=== PATIENT | female | born 1965 | race Caucasian/White ===

== ENCOUNTER 2020-01-01 17:21 | Emergency (ER) | payer OTHER ==
[~2020-01-01] VITALS: Ht 162.6 cm; Wt 108.9 kg
[~2020-01-01 17:21] MED LIST: CELECOXIB200 MG PO; DICLOFENAC SODI75 MG PO; IBUPROFEN200 M1 PO; LISINOPRIL20 MG PO; METOPROLOL-HCT1 EAC1 PO; NORCO 5-325 TA1 EACH PO; NORCO 7.5-3251 EACH PO; TYLENOL EXTRA500 MG PO; ULTRAM50 MG PO; ZANTAC150 MG PO
[2020-01-01] MEDS ORDERED: NORCO 5-325 TA1 EACH PO (20:59)
[2020-01-01] MEDS ORDERED: ZOFRAN4 MG PO (20:59)
== END 2020-01-01 21:13 | disposition home or self-care (01) ==
LOC: ED 17:21
DX: N13.2 Hydronephrosis with renal and ureteral calculous obstruction (principal); I10 Essential (primary) hypertension; F17.200 Nicotine dependence, unspecified, uncomplicated; Z91.040 Latex allergy status; Z88.8 Allergy status to other drugs, medicaments and biological substances; Z79.899 Other long term (current) drug therapy
CPT/HCPCS: 51798; 74176; 80053; 81001; 85025; 96374; 96375; 99284-25; J1170; J1885; J2405; J7030

== ENCOUNTER 2020-01-18 11:45 | Day surgery (SDC) | payer OTHER ==
[~2020-01-18] VITALS: Ht 162.6 cm; Wt 106.4 kg
[~2020-01-18 11:45] MED LIST changes: +FLOMAX0.4 MG PO; +OXYCODONE HCL5 MG PO; +ZOFRAN4 MG PO
--- NOTE | 2020-01-18 14:22 | NUR ---
01/18/20 1422 Jacqueline Leal 1357 PT ARRIVED IN PACU SLEEPY WITH NO C/O'S. 1410 PT RESTING. REU. 1420 PT AWAKE TALKING TO STAFF. NO C/O'S.
--- NOTE | 2020-01-18 15:08 | NUR ---
PT TOLERATES PO WELL, WATER REFILLED. PT STATES SHE IS HAVING INCREASING PAIN AND CRAMPING "LIKE PERIOD PAID." PT WOULD LIKE SOMETHING TO HELP WITH PAIN; SEE EMAR. PT SPOUSE AT BEDSIDE, CALL LIGHT WITHIN REACH.
--- NOTE | 2020-01-18 15:45 | NUR ---
PT STATES THAT A NURSE HELPED HER TO BATHROOM AND SHE WAS ABLE TO VOID, WHEN ASKED PT STATES "THERE WAS SOME BLOOD PRESENT." PT BACK TO ROOM WITH SPOUSE AT BEDSIDE, DENIES PAIN AT THIS TIME. PT EDUCATED ABOUT STENT IN PLACE. 1615: PT DRESSES SELF WITH SPOUSE IN RM. DC INSTRUCTIONS GIVEN IN PRESENCE OF PT AND SPOUSE, NO QUESTIONS ASKED. PT IS TRASFERRED TO PERSONAL VEHICLE DRIVEN BY SPOUSE AT MAIN ENTRANCE OF HOSPITAL VIA WC TO HOME.
[2020-01-18] MEDS ORDERED: CIPRO500 MG PO (16:09)
[2020-01-18] MEDS ORDERED: PERCOCET 7.5-31 EACH PO (16:09)
--- NOTE | 2020-01-21 19:26 | OR ---
[facility] [address] [place], [place] [address] Signed DATE OF OPERATION: 01/18/2020 SURGEON: Joan Parham MD PREOPERATIVE DIAGNOSIS: A 14 mm obstructing right distal ureteral calculus. POSTOPERATIVE DIAGNOSIS: A 14 mm right ureterovesical junction calculus, obstructing. PROCEDURES: 1. Cystoscopy with right retrograde pyelogram. 2. Semi-rigid ureteroscopy with laser lithotripsy and basket extraction of stone fragments. 3. Insertion of a 7 x 24 cm double-J ureteral stent into the right ureter. INDICATIONS FOR PROCEDURE: Ms. Quinteros is a very pleasant 54-year-old female with no previous history of nephrolithiasis, who presented to my clinic last week with complaints of multi day history of sudden onset of right-sided flank pain. She had previously presented to the emergency department, where she underwent a CT scan, which revealed a 14 x 9 mm right distal ureteral calculus with associated hydroureteronephrosis. The patient did not have UTI at the time and she denied any fevers or chills. She was sent home, where she followed up with me relatively soon thereafter and requesting surgical extraction of the stone. After discussing the risks and benefits of the procedure, the patient elected to undergo ureteroscopic extraction of her large right distal ureteral calculus. OPERATIVE FINDINGS: 1. On cystoscopy, there was no evidence of any suspicious masses or lesions. The large right ureteral calculus appears to be from the right ureteral orifice. Only a small portion of the stone appears to be bulging from the right ureteral orifice. The left ureteral orifice is effluxing clear yellow urine. 2. Right retrograde pyelogram revealed urdvygae-fq-hjqagx calyceal dilation of the right kidney. No other filling defects were noted within the right ureter. 3. Right distal ureteroscopy immediately revealed the presence of a large stone in the distal right ureter, near the right UVJ. The stone was fragmented using a holmium laser at 8 and 1 settings using a 270 micron fiber. The stone fragmented with moderate difficulty. I was able to basket the stone fragments using a Zero tip basket and I retrieved 100% of the stone burden from the distal right ureter. 4. At the end of the procedure, a 7 x 24 cm double-J ureteral stent was inserted into Electronically Signed By: JOAN PARHAM MD 01/21/20 1926 PATIENT NAME: ROCAEL QUINTEROS OPERATIVE REPORT DATE OF : 63 REPORT #: [id number] PHYSICIAN: JOAN PARHAM MD PCP: MARCELA NAIR DO REPORT IS CONFIDENTIAL AND NOT TO BE RELEASED WITHOUT AUTHORIZATION [facility] [address] [place] [id number] Signed the patient's right ureter under direct visualization without difficulty. DESCRIPTION OF PROCEDURE: After informed consent was obtained, the patient was taken back to the operating room. She was transferred from the [facility] to the operating room table, where general anesthesia was induced. She was placed in the dorsal lithotomy position and her genitalia were prepped and draped in a standard sterile fashion. Using a 30-degree lens on a 22.5-Algerian introducer rigid cystoscope was inserted through urethra into her bladder under direct visualization. Panendoscopic views of the bladder were then obtained. Please see above findings. I then removed the cystoscope and replaced it with a semi-rigid short ureteroscope. Once I noted that the stone appeared to be from the right ureteral orifice, I gently inserted the ureteroscope and pushed the stone about 1 cm into the right ureter. This was where the stone was lasered using a 270 micron fiber and the holmium laser at 8 and 1 settings. The stone fragmented with lllm-bn-krcsgjve difficulty. I was then able to successfully extract 100% of the stone fragments from the distal right ureter. I advanced the ureteroscope all the way up to the proximal right ureter and I did not appreciate any other stone fragments. A 0.035 sensor wire was inserted through the rigid ureteroscope and up into the proximal right ureter and right renal pelvis. The ureteroscope was then removed fully intact. Over the wire, I passed a 7 x 24 cm double-J ureteral stent into the right ureter under direct visualization without difficulty. A proximal coil was seen within the right renal pelvis once I pulled the Sensor wire. An adequate distal coil was seen within the bladder. A string was left on the stent at the end of the procedure. The patient's bladder was then drained and the cystoscope was removed. The procedure was then terminated. The patient tolerated the procedure well without any complication. She will now be transferred to the Postanesthesia Care Unit in stable condition. DISPOSITION: I discussed the details of today's surgery with the patient's and answered all of his questions. I did tell him that 100% of the patient's obstructing stone has been successfully removed from the right ureter. She has been given some additional pain control in the form of oxycodone 5 mg p.o. q.6 hours p.r.n. pain, dispense #20. She was also sent home today on Cipro 500 mg p.o. b.i.d. for a total of 7 days. She was instructed to remove her indwelling ureteral stent using the string attached on January 21. She will be then scheduled to see me in approximately 6 to 8 weeks for her first postoperative evaluation and to discuss the results of her stone analysis. Joan Parham MD Electronically Signed By: JOAN PARHAM MD 01/21/20 192 PATIENT NAME: ROCAEL QUINTEROS OPERATIVE REPORT DATE OF : 63 REPORT #: [id number] PHYSICIAN: JOAN PARHAM MD PCP: MARCELA NAIR DO REPORT IS CONFIDENTIAL AND NOT TO BE RELEASED WITHOUT AUTHORIZATION [address] [place] [address] Signed AR/MODL /[id number] Copies: ~ Electronically Signed By: JOAN PARHAM MD 01/21/20 1926 PATIENT NAME: ROCAEL QUINTEROS OPERATIVE REPORT DATE OF : 63 REPORT #: [id number] PHYSICIAN: JOAN PARHAM MD PCP: MARCELA NAIR DO REPORT IS CONFIDENTIAL AND NOT TO BE RELEASED WITHOUT AUTHORIZATION
== END 2020-01-18 16:20 | disposition home or self-care (01) ==
LOC: OPS 11:45 → DS 11:45 → OPS 12:00 → DS 12:00 → OPS 12:30
PROVIDERS: ATTEND Urology
PROC: 0TC68ZZ Extirpation of Matter from Right Ureter, Via Natural or Artificial Opening Endoscopic (ICD-10-PCS; 2020-01-18)
PROC: BT1DZZZ Fluoroscopy of Right Kidney, Ureter and Bladder (ICD-10-PCS; 2020-01-18)
PROC: 0T768DZ Dilation of Right Ureter with Intraluminal Device, Via Natural or Artificial Opening Endoscopic (ICD-10-PCS; principal; 2020-01-18 12:30)
DX: N20.1 Calculus of ureter (principal); I10 Essential (primary) hypertension; E11.9 Type 2 diabetes mellitus without complications; E78.00 Pure hypercholesterolemia, unspecified; F17.210 Nicotine dependence, cigarettes, uncomplicated; K21.9 Gastro-esophageal reflux disease without esophagitis; E66.01 Morbid (severe) obesity due to excess calories; Z88.6 Allergy status to analgesic agent; Z79.899 Other long term (current) drug therapy; Z68.39 Body mass index [BMI] 39.0-39.9, adult; Z01.812 Encounter for preprocedural laboratory examination; Z20.828 Contact with and (suspected) exposure to other viral communicable diseases
CPT/HCPCS: 00918; 74018; 74420; 82365; C1769; C2617; J0690; J1100; J1885; J2250; J2405; J2704; J2765; J3010; J7121; Q9967

== ENCOUNTER 2024-12-30 05:45 | Day surgery (SDC) | payer OTHER ==
[~2024-12-30] VITALS: Ht 162.6 cm; Wt 95.0 kg
[~2024-12-30 05:45] MED LIST changes: +ATIVAN1 MG PO; +CIPRO500 MG PO; +CYCLOBENZAPRINE10 MG PO; +HYDROCODON-ACE1 EA10 PO; +LACTATED RINGER'S 1,000 ML IV SCH; +LIPITOR10 MG PO; +METFORMIN HCL500 MG PO; +NEURONTIN400 MG PO; +PERCOCET 7.5-31 EACH PO
[2024-12-30 05:59] VITALS: BP 114/66
[2024-12-30 06:18] LABS: BASOPHILS 0.8 % (0.1-1.2); EOSINOPHILS 1.5 % (0.7-5.8); LYMPHOCYTES 26.7 % (19.3-51.7); MCH 30.7 PG (25.6-32.2); MCHC 33.4 g/dL (32.2-35.5); MCV 91.8 fL (79.4-94.8); MONOCYTES 5.1 % (4.7-12.5); NEUTROPHILS 65.6 % (34.0-71.1); RBC 4.37 M/uL (3.93-5.22)
[2024-12-30 06:34] LABS: ALT (SGPT) 23.0 U/L (14-59); AST (SGOT) 14.0 U/L (15-37); GLOMERULAR FILTRATION RATE,EST 102.0 mL/min (>60); PROTEIN, TOTAL 7.3 g/dL (6.4-8.2); UREA NITROGEN 14.0 mg/dL (7-18)
[2024-12-30] MEDS ORDERED: LIDOCAINE HCL 2% 5 ML SDV ONE (06:53)
[2024-12-30] MEDS ORDERED: LIDOCAINE HCL 1% 5 ML SDV INJ ONE (07:00)
[2024-12-30] MEDS ORDERED: IBLOOD GLUCOSE TEST STRIP 1 EA TEST VI PRN (07:00)
--- NOTE | 2024-12-30 08:39 | NUR ---
12/30/24 0839 Mirian Garcia 0827- PT PRESENTS TO PACU, LEFT LATERAL POSITION, AWAKE AND TALKING BUT DROWSY. DENIES PAIN OR NAUSEA, ENCOURAGED TO PASS GAS. LR INFUSING TO RH IV. ABD SOFT, NON DISTENDED. BREATHING EVEN AND NON LABORED ON ROOM AIR. ALL MONITORS IN PLACE. 0838- PT PASSING GAS, ROLLED TO BACK INDEPENDENTLY. SAT UP IN BED. GLASSES PUT BACK ON PT.
[2024-12-30 08:51] VITALS: BP 128/65
--- NOTE | 2025-01-01 11:29 | PATH ---
[facility] [address] [place], [place] [address] Signed SPECIMEN(S): A COLON POLYP 10-20 CM SPECIMEN(S): B MID TRANSVERSE COLON POLYP SPECIMEN SOURCE: A. COLON POLYP 10-20 CM B. MID TRANSVERSE COLON POLYP CLINICAL HISTORY: Pre-op: Screen, constipation. Postop : polyps FINAL PATHOLOGIC DIAGNOSIS: A. Hyperplastic polyps at colon 10 to 20 cm: - Fragments of hyperplastic polyp B. Mid transverse colon polyp: - Submucosal lipoma - Negative for atypia or malignant neoplasm BB MICROSCOPIC EXAMINATION: Histologic sections of all submitted blocks are examined by light microscopy. These findings, together with the gross examination, support the pathologic diagnosis. GROSS DESCRIPTION: A. The specimen, labeled and designated "Quinteros, hyperplastic polyps at colon 10 to 20 cm," is received in formalin and consists of five nazario soft tissue fragments, ranging from 0.1-0.2 cm. Entirely submitted in (A1). B. The specimen, labeled and designated "Quinteros, mid transverse colon polyp," is received in formalin and consists of one nazario soft tissue fragment, 2.7 cm. Resection margin is 1.2 cm in diameter. The resection margin is inked and specimen is sectioned. in (B1-B5). JS (under the direct supervision of a pathologist) The Gross Description was prepared using a voice recognition system. The report was reviewed for accuracy; however, sound-alike word errors, addition and/or deletions may occur. If there is any question about this report, please contact Client Services. ADDITIONAL NOTES: Immunohistochemical and/or in situ hybridization studies if performed in this case included appropriate positive controls that reacted as expected. This PATIENT NAME: ROCAEL QUINTEROS PATHOLOGY DATE OF : 63 REPORT #: [id number] PHYSICIAN: LIZ PITT PCP: MARCELA NAIR DO REPORT IS CONFIDENTIAL AND NOT TO BE RELEASED WITHOUT AUTHORIZATION [facility] [address] [facility] [place] [address] Signed test was developed and its performance characteristics determined by [facility]. It has not been cleared or approved by the U.S. Food and Drug Administration. The FDA has determined that such clearance or approval is not necessary. This test is used for clinical purposes. It should not be regarded as investigational or for research. [facility] is certified under the Clinical Laboratory Improvement Amendments of 1988 (CLIA) as qualified to perform high complexity clinical laboratory testing. PERFORMING LABORATORY: Technical component was performed by [facility], [address] [place] [address] (CLIA# [id number]). Professional interpretation was performed by [facility] [place] [address] (CLIA#: [id number]). Diagnostician: Leopoldo Brian MD Pathologist Electronically Signed 01/01/2025 Copies: ~ PATIENT NAME: ROCAEL QUINTEROS PATHOLOGY DATE OF : 63 REPORT #: [id number] PHYSICIAN: LIZ PITT PCP: MARCELA NAIR DO REPORT IS CONFIDENTIAL AND NOT TO BE RELEASED WITHOUT AUTHORIZATION
== END 2024-12-30 08:58 | disposition home or self-care (01) ==
LOC: OPS 05:45 → DS 05:45 → OPS 07:30
PROVIDERS: ATTEND Surgery
PROC: 0DBL8ZX Excision of Transverse Colon, Via Natural or Artificial Opening Endoscopic, Diagnostic (ICD-10-PCS; 2024-12-30)
PROC: 0DBF8ZX Excision of Right Large Intestine, Via Natural or Artificial Opening Endoscopic, Diagnostic (ICD-10-PCS; 2024-12-30)
PROC: 0DBN8ZX Excision of Sigmoid Colon, Via Natural or Artificial Opening Endoscopic, Diagnostic (ICD-10-PCS; principal; 2024-12-30 07:30)
DX: Z12.11 Encounter for screening for malignant neoplasm of colon (principal); D17.5 Benign lipomatous neoplasm of intra-abdominal organs; K62.1 Rectal polyp; E11.9 Type 2 diabetes mellitus without complications; E78.00 Pure hypercholesterolemia, unspecified; I10 Essential (primary) hypertension; E66.9 Obesity, unspecified; Z68.35 Body mass index [BMI] 35.0-35.9, adult; Z79.84 Long term (current) use of oral hypoglycemic drugs; Z79.899 Other long term (current) drug therapy; Z88.6 Allergy status to analgesic agent; Z91.040 Latex allergy status
CPT/HCPCS: 00812; 36415; 80053; 85025; 88305; J2003; J2704; J7121